=== PATIENT | female | born 1940 | race Caucasian/White ===

== ENCOUNTER → 2023-08-31 09:20 | Outpatient (REF) | payer MEDICARE, SELFPAY ==
[2023-08-31 09:47] LABS: Urine Albumin Trace (Neg - Trace); Urine Bilirubin 1+ (Negative); Urine Character Very Cloudy (Clear); Urine Color Amber; Urine Glucose Negative (Negative); Urine Ketone Trace (Negative); Urine Leukocyte 2+ (Negative); Urine Nitrite Positive (Negative); Urine Occult Blood 1+ (Negative); Urine Urobilinogen 1+ (Neg - 1+)
[2023-08-31 09:58] LABS: Urine Bacteria Many (Negative); Urine White Cell >100 /HPF (0-5)
== END ==
LOC: REG 09:20
PROVIDERS: ATTENDING PHYSICIAN Internal Medicine
DX: R30.0 Dysuria (principal)
CPT/HCPCS: 81003; 81015

== ENCOUNTER → 2023-10-26 11:39 | Outpatient (REF) | payer MEDICARE, SELFPAY | LOC: RAD 11:39 | PROVIDERS: ATTENDING PHYSICIAN Internal Medicine; FAMILY PHYSICIAN Internal Medicine | DX: R05.1 Acute cough (principal) | CPT/HCPCS: 71046 ==

== ENCOUNTER → 2023-11-29 17:27 | Outpatient (REF) | payer MEDICARE, SELFPAY | LOC: RAD 17:27 | PROVIDERS: ATTENDING PHYSICIAN Internal Medicine; FAMILY PHYSICIAN Internal Medicine | DX: M25.552 Pain in left hip (principal) | CPT/HCPCS: 73502 ==

== ENCOUNTER → 2023-12-31 16:49 | Outpatient (REF) | payer MEDICARE, SELFPAY | LOC: PAVMRI 16:49 | PROVIDERS: ATTENDING PHYSICIAN Orthopaedic Surgery; FAMILY PHYSICIAN Internal Medicine | DX: M25.552 Pain in left hip (principal) | CPT/HCPCS: 73721 ==

== ENCOUNTER → 2024-01-12 13:31 | Outpatient (REF) | payer MEDICARE, SELFPAY ==
[2024-01-12 15:32] LABS: Albumin 4.3 g/dl (3.5-5.0); Blood Urea Nitrogen 48 mg/dl (7-17); Calcium 9.5 mg/dl (8.4-10.2); Carbon Dioxide 25 mmol/L (22-30); Chloride 104 mmol/L (98-107); Glucose 79 mg/dl (70-99); Phosphorus 3.9 mg/dl (2.5-4.5); Potassium 4.9 mmol/L (3.5-5.1); Sodium 137 mmol/L (135-145); eGFR 34.15
== END ==
LOC: REG 13:31
PROVIDERS: ATTENDING PHYSICIAN Internal Medicine
DX: N28.9 Disorder of kidney and ureter, unspecified (principal)
CPT/HCPCS: 36415; 80069

== ENCOUNTER → 2024-04-06 11:44 | Outpatient (REF) | payer MEDICARE, SELFPAY ==
[2024-04-06 13:32] LABS: % Basophils 1.3 % (0-2); % Eosinophils 2.4 % (0-6); % Immature Granulocytes 0.5 % (0-0.5); % Lymphocytes 29.7 % (20.5-51.1); % Monocytes 10.6 % (1.7-9.3); % Neutrophils 55.5 % (42.2-75.2); Absolute Basophils 0.1 10^3/uL (0-0.2); Absolute Eosinophils 0.2 10^3/uL (0-0.7); Absolute Lymphocytes 1.9 10^3/uL (1.2-3.4); Absolute Monocytes 0.7 10^3/uL (0.1-0.6); Absolute Neutrophils 3.5 10^3/uL (1.4-6.5); Hematocrit 36.6 % (37.0-47.0); Hemoglobin 11.8 g/dL (12.0-16.0); Mean Corp Hgb Conc. 32.2 g/dL (33.0-37.0); Mean Corpuscular Hgb 31.1 pg (27.0-31.0); Mean Corpuscular Volume 96.6 fL (81.0-99.0); Nucleated Red Blood Cells % 0 %; Platelet Count 248 10^3/uL (130-400); Red Blood Cell Count 3.79 10^6/uL (4.20-5.40); Red Cell Dist. Width 13.2 % (11.5-14.5); White Blood Cell Count 6.2 10^3/uL (4.8-10.8)
[2024-04-06 14:09] LABS: Iron 74 ug/dl (37-170)
[2024-04-06 14:13] LABS: Free T4 1.07 ng/dl (0.78-2.19)
[2024-04-06 14:19] LABS: Percent Saturation 26 % (20-50); Total Iron Binding Capacity 282 ug/dl (265-497)
[2024-04-06 14:27] LABS: TSH 3.13 uIU/ml (0.47-4.68)
[2024-04-08 16:17] LABS: Thyroid Peroxidase Ab (TPO) 1.3 IU/mL (0.0-9.0)
== END ==
LOC: RAD 11:44
PROVIDERS: ATTENDING PHYSICIAN Nurse Practitioner Acute Care; FAMILY PHYSICIAN Internal Medicine; REFERRING PHYSICIAN Nurse Practitioner Family
DX: E03.9 Hypothyroidism, unspecified (principal); M51.360 Other intervertebral disc degeneration, lumbar region with discogenic back pain only; M81.0 Age-related osteoporosis without current pathological fracture; Z98.1 Arthrodesis status; I50.23 Acute on chronic systolic (congestive) heart failure
CPT/HCPCS: 36415; 72082; 72110; 77080; 83540; 83550; 84432; 84439; 84443; 85025; 86376; 86800

== ENCOUNTER → 2024-04-27 12:10 | Outpatient (REF) | payer MEDICARE, SELFPAY ==
[2024-04-27 13:49] LABS: Albumin 4.6 g/dl (3.5-5.0); Blood Urea Nitrogen 56 mg/dl (7-17); Calcium 9.4 mg/dl (8.4-10.2); Carbon Dioxide 25 mmol/L (22-30); Chloride 99 mmol/L (98-107); Glucose 90 mg/dl (70-99); Phosphorus 4.8 mg/dl (2.5-4.5); Sodium 139 mmol/L (135-145); eGFR 27.44
[2024-04-27 13:55] LABS: NT-proBNP 358 pg/ml
== END ==
LOC: RAD 12:10
PROVIDERS: ATTENDING PHYSICIAN Internal Medicine; REFERRING PHYSICIAN Internal Medicine Cardiovascular Disease
DX: R53.83 Other fatigue (principal); R06.09 Other forms of dyspnea; I42.0 Dilated cardiomyopathy; D64.9 Anemia, unspecified
CPT/HCPCS: 36415; 71046; 80069; 83880

== ENCOUNTER → 2024-07-13 11:09 | Outpatient (REF) | payer MEDICARE, SELFPAY | LOC: PAVMRI 11:09 | PROVIDERS: ATTENDING PHYSICIAN Psychiatry & Neurology Neurology; FAMILY PHYSICIAN Internal Medicine | DX: M54.16 Radiculopathy, lumbar region (principal); M54.9 Dorsalgia, unspecified | CPT/HCPCS: 72158; A9575 ==

== ENCOUNTER → 2024-09-28 11:32 | Outpatient (REF) | payer MEDICARE, SELFPAY ==
[2024-09-28 11:58] LABS: % Basophils 0.8 % (0-2); % Eosinophils 2.8 % (0-6); % Immature Granulocytes 0.2 % (0-0.5); % Lymphocytes 38.4 % (20.5-51.1); % Monocytes 10.4 % (1.7-9.3); % Neutrophils 47.4 % (42.2-75.2); Absolute Basophils 0.1 10^3/uL (0-0.2); Absolute Eosinophils 0.2 10^3/uL (0-0.7); Absolute Lymphocytes 2.3 10^3/uL (1.2-3.4); Absolute Monocytes 0.6 10^3/uL (0.1-0.6); Absolute Neutrophils 2.8 10^3/uL (1.4-6.5); Hematocrit 35.4 % (37.0-47.0); Hemoglobin 11.6 g/dL (12.0-16.0); Mean Corp Hgb Conc. 32.8 g/dL (33.0-37.0); Mean Corpuscular Volume 94.7 fL (81.0-99.0); Nucleated Red Blood Cells % 0 %; Platelet Count 189 10^3/uL (130-400); Red Blood Cell Count 3.74 10^6/uL (4.20-5.40)
[2024-09-28 12:45] LABS: ALT (SGPT) 13 U/L (0-35); AST (SGOT) 23 U/L (14-36); Albumin 4.6 g/dl (3.5-5.0); Alkaline Phosphatase 61 U/L (38-126); Blood Urea Nitrogen 55 mg/dl (7-17); Calcium 9.4 mg/dl (8.4-10.2); Carbon Dioxide 27 mmol/L (22-30); Chloride 104 mmol/L (98-107); Glucose 97 mg/dl (70-99); HDL Cholesterol 47 mg/dl; Magnesium 2.4 mg/dl (1.6-2.3); Potassium 4.3 mmol/L (3.5-5.1); Sodium 142 mmol/L (135-145); Total Bilirubin 0.6 mg/dl (0.2-1.3); Total Protein 7.2 g/dl (6.3-8.2); Triglyceride 195 mg/dl (10-149); Very Low Density Lipoprotein 39 mg/dl (0-30); eGFR 31.61
[2024-09-28 12:54] LABS: LDL Cholesterol, Calculated 275 mg/dl; Total Cholesterol 361 mg/dl (50-199)
[2024-09-28 13:24] LABS: TSH 3.16 uIU/ml (0.47-4.68)
[2024-09-28 14:08] LABS: NT-proBNP 308 pg/ml
== END ==
LOC: REG 11:32
PROVIDERS: ATTENDING PHYSICIAN Internal Medicine
DX: I42.8 Other cardiomyopathies (principal); R73.09 Other abnormal glucose; N18.31 Chronic kidney disease, stage 3a; M48.061 Spinal stenosis, lumbar region without neurogenic claudication; Z00.00 Encounter for general adult medical examination without abnormal findings; I50.23 Acute on chronic systolic (congestive) heart failure
CPT/HCPCS: 36415; 80053; 80061; 83036; 83735; 83880; 84443; 85025